=== PATIENT | female | born 2000 | race Two or more races ===

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

== ENCOUNTER 2019-01-27 21:47 | Emergency (ER) | payer OTHER ==
[~2019-01-27] VITALS: Ht 154.9 cm; Wt 54.4 kg
[2019-01-27 21:47] VITALS: BP 109/61
--- NOTE | 2019-01-27 22:35 | PHYS DOC ---
Past Medical History Past Medical History: Asthma Additional Past Medical Histor: HEART ARRYTHMIA, back problems,DJD,SPINAL STENOSIS,GASTROPROESIS Past Surgical History: Cholecystectomy Additional Past Surgical Histo: SMALL INTESTINE REMOVAL SX,TOTAL DISC REPLACEMENT Alcohol Use: None Drug Use: None Adult General Chief Complaint Chief Complaint: DRESSING CHANGE [facility] HPI Patient is a 18 year old female presents to emergency room requesting dressing change to Port-A-Cath. The port was placed on Saturday, the dressing is peeling off and she would like it changed. She states was not told how to care for the port or the dressing so came to the emergency room for evaluation. She is not having any other concerns. Review of Systems Review of Systems Constitutional: Denies fever or chills [] Eyes: Denies change in visual acuity, redness, or eye pain [] HENT: Denies nasal congestion or sore throat [] Respiratory: Denies cough or shortness of breath [] Cardiovascular: No additional information not addressed in HPI [] GI: Denies abdominal pain, nausea, vomiting, bloody stools or diarrhea [] : Denies dysuria or hematuria [] Musculoskeletal: Denies back pain or joint pain [] Integument: Denies rash or skin lesions [] Neurologic: Denies headache, focal weakness or sensory changes [] Endocrine: Denies polyuria or polydipsia [] All other systems were reviewed and found to be within normal limits, except as documented in this note. Allergies Allergies Allergies Coded Allergies Type Severity Reaction Last Updated Verified Iodinated Contrast- Oral and IV Dye Allergy Unknown 05/16/18 Yes Penicillins Allergy Unknown 05/16/18 Yes infliximab Allergy Unknown 05/16/18 Yes meperidine Allergy Unknown 05/16/18 Yes Physical Exam Physical Exam Constitutional: Well developed, well nourished, no acute distress, non-toxic appearance. [] Skin: Warm, dry, no erythema, no rash, dressing to port rt chest coming off. [] Neurologic: Alert and oriented X 3, normal motor function, normal sensory function, no focal deficits noted. [] Psychologic: Affect normal, judgement normal, mood normal. [] Current Patient Data Vital Signs Vital Signs Date Time Temp Pulse Resp B/P (MAP) Pulse Ox O2 Delivery O2 Flow Rate FiO2 01/27/19 21:47 98.1 112 20 109/61 (77) 99 Room Air 98.1 EKG EKG [] Radiology/Procedures Radiology/Procedures [] Course & Med Decision Making Course & Med Decision Making Pertinent Labs and Imaging studies reviewed. (See chart for details) [Dressing change was done to site of new Port-A-Cath, well healing incision, no evidence of infection, recommend follow-up with her doctor tomorrow.] Dragon Disclaimer Dragon Disclaimer This electronic medical record was generated, in whole or in part, using a voice recognition dictation system. Departure Departure Impression: Primary Impression: Dressing change Disposition: 01 HOME, SELF-CARE Condition: STABLE Referrals: NO PCP (PCP) Patient Instructions: Dressing Change, [id number] ALETHA LAGOS [employer] PROFESSION[employer] Jan 27, 2019 22:35
== END 2019-01-27 22:58 | disposition home or self-care (01) ==
LOC: ER 21:47
DX: Z45.2 Encounter for adjustment and management of vascular access device (principal); J45.909 Unspecified asthma, uncomplicated; Z88.0 Allergy status to penicillin; Z88.1 Allergy status to other antibiotic agents; Z91.041 Radiographic dye allergy status; Z88.8 Allergy status to other drugs, medicaments and biological substances
CPT/HCPCS: 99285